=== PATIENT | female | born 1960 | race Caucasian/White ===

== ENCOUNTER → 2017-03-27 | Outpatient (CLI) | payer OTHER | LOC: MC.RAD 07:00 | DX: Z12.31 Encounter for screening mammogram for malignant neoplasm of breast (principal) ==

== ENCOUNTER → 2018-01-15 | Outpatient (CLI) | payer OTHER | LOC: COL.RAD 08:27 | DX: R05 Cough (principal); R06.02 Shortness of breath; F17.200 Nicotine dependence, unspecified, uncomplicated | CPT/HCPCS: Q9967 ==

== ENCOUNTER → 2018-01-28 | Outpatient (CLI) | payer OTHER | LOC: COL.PUL 07:43 | DX: R05 Cough (principal); R06.00 Dyspnea, unspecified; F17.210 Nicotine dependence, cigarettes, uncomplicated ==

== ENCOUNTER → 2018-02-08 | Outpatient (CLI) | payer OTHER | LOC: COL.RAD 11:38 | DX: R93.2 Abnormal findings on diagnostic imaging of liver and biliary tract (principal) ==

== ENCOUNTER 2018-03-08 07:34 | Day surgery (SDC) | payer OTHER ==
[~2018-03-08] VITALS: Ht 162.6 cm; Wt 54.7 kg
[2018-03-08] MEDS ORDERED: XANAX 1MG1 MG PO (07:55)
[2018-03-08] MEDS ORDERED: ZOLOFT 100MG100 MG PO (07:55)
[2018-03-08 07:56] VITALS: BP 129/82; PULSE 54; TEMP 97.8
[2018-03-08] MEDS ORDERED: TRELEGY ELLIPT1 EACH IH (07:56)
[2018-03-08] MEDS ORDERED: PROAIR HFA0.09 MG/AC IH (07:56)
[2018-03-08 09:20] VITALS: BP 119/67; PULSE 63; TEMP 97.8
[2018-03-08 09:35] VITALS: BP 106/67; PULSE 62
[2018-03-08 09:50] VITALS: BP 93/69; PULSE 62
== END 2018-03-08 10:07 | disposition home or self-care (01) ==
LOC: SDCO 07:34
DX: Z86.010 Personal history of colon polyps (principal); D12.3 Benign neoplasm of transverse colon; K57.30 Diverticulosis of large intestine without perforation or abscess without bleeding; K21.9 Gastro-esophageal reflux disease without esophagitis; J44.9 Chronic obstructive pulmonary disease, unspecified; Z87.11 Personal history of peptic ulcer disease
CPT/HCPCS: J2250; J3010; J7030

== ENCOUNTER 2018-08-02 07:08 | Day surgery (SDC) | payer OTHER ==
[~2018-08-02] VITALS: Ht 162.6 cm; Wt 56.7 kg
[2018-08-02] VITALS (9 sets, daily range): BP systolic 94–114; BP diastolic 53–70; PULSE 50–56; TEMP 98.1
[~2018-08-02 07:08] MED LIST: PROAIR HFA0.09 MG/AC IH; TRELEGY ELLIPT1 EACH IH; XANAX 1MG1 MG PO; ZOLOFT 100MG100 MG PO
[2018-08-02 07:46] LABS: HEMOGLOBIN 13.6 g/dl (12.5-16.0); MEAN CELL VOLUME 96 fl (80.0-100.0); MEAN CORPUSCULAR HEMOGLOBIN 32 pg (27.0-31.0); MEAN CORPUSCULAR HGB CONC 33 g/dl (33.0-37.0); MEAN PLATELET VOLUME 10.4 fl (7.4-10.4); PLATELET COUNT 231 K/mm3 (130-400); RED BLOOD COUNT 4.27 M/mm3 (4.10-5.30); REDCELL DISTRIBUTION WIDTH-CV 13.5 % (11.5-14.5)
[2018-08-02 07:55] LABS: CREATININE, serum 0.72 mg/dL (0.52-1.25); POTASSIUM 3.5 mmol/L (3.4-5.0)
[2018-08-02] MEDS ORDERED: ASPI325T6 PO (08:03)
[2018-08-02] MEDS ORDERED: NITROSTAT0.4 MG/TAB SL (08:04)
[2018-08-02] MEDS ORDERED: TOPROL XL 25MG25 MG PO (08:06)
[2018-08-02] MEDS ORDERED: PLAVIX 75MG TAB75 MG PO (08:07)
[2018-08-02] MEDS ORDERED: [UNRECOGNIZED DRUG - OTHER] IH (08:10)
== END 2018-08-02 13:21 | disposition home or self-care (01) ==
LOC: COL.CAR 07:08
PROVIDERS: Internal Medicine Interventional Cardiology
DX: R07.89 Other chest pain (principal); J44.9 Chronic obstructive pulmonary disease, unspecified; M79.604 Pain in right leg; M79.605 Pain in left leg; F17.200 Nicotine dependence, unspecified, uncomplicated; Z79.82 Long term (current) use of aspirin; Z90.710 Acquired absence of both cervix and uterus; Z90.49 Acquired absence of other specified parts of digestive tract; Z88.2 Allergy status to sulfonamides
CPT/HCPCS: J1644; J2250; J3010

== ENCOUNTER → 2018-09-23 | Outpatient (CLI) | payer BC ==
[~2018-09-23] MED LIST changes: +ASPI325T6 PO; +NITROSTAT0.4 MG/TAB SL; +PLAVIX 75MG TAB75 MG PO; +TOPROL XL 25MG25 MG PO; +[UNRECOGNIZED DRUG - OTHER] IH
== END ==
LOC: MC.RAD 07:20
DX: Z12.31 Encounter for screening mammogram for malignant neoplasm of breast (principal)

== ENCOUNTER → 2019-10-17 | Outpatient (CLI) | payer BC | LOC: MC.RAD 08:01 | DX: Z12.31 Encounter for screening mammogram for malignant neoplasm of breast (principal) ==

== ENCOUNTER → 2021-01-04 | Outpatient (CLI) | payer BC | LOC: MC.RAD 15:10 | DX: Z12.31 Encounter for screening mammogram for malignant neoplasm of breast (principal); N64.89 Other specified disorders of breast ==

== ENCOUNTER → 2021-01-10 | Outpatient (CLI) | payer BC | LOC: MC.RAD 06:58 | DX: N63.10 Unspecified lump in the right breast, unspecified quadrant (principal); N64.89 Other specified disorders of breast ==

== ENCOUNTER → 2022-01-06 | Outpatient (CLI) | payer BC | LOC: MC.RAD 07:46 | DX: Z12.31 Encounter for screening mammogram for malignant neoplasm of breast (principal) ==

== ENCOUNTER → 2022-01-24 | Outpatient (CLI) | payer BC | LOC: COL.RAD 07:15 | DX: K44.9 Diaphragmatic hernia without obstruction or gangrene (principal); K21.9 Gastro-esophageal reflux disease without esophagitis ==

== ENCOUNTER → 2022-01-27 | Outpatient (CLI) | payer BC | LOC: COL.RAD 07:30 | DX: K21.00 Gastro-esophageal reflux disease with esophagitis, without bleeding (principal) | CPT/HCPCS: A9541 ==

== ENCOUNTER 2022-02-22 07:36 | Day surgery (SDC) | payer BC ==
[2022-02-22] VITALS (12 sets, daily range): BP systolic 101–126; BP diastolic 50–66; PULSE 59–97; TEMP 97.8–98.4
[~2022-02-22] VITALS: Ht 162.6 cm; Wt 51.0 kg
[2022-02-22] MEDS ORDERED: WELLBUTRIN XL300 M1 PO (08:07)
[2022-02-22] MEDS ORDERED: QVAR REDIHALE10.6 G1 IH (08:08)
[2022-02-22] MEDS ORDERED: SPIRIVA RESPIMAT4 GM IH (08:08)
[2022-02-22] MEDS ORDERED: TRICOR145 MG PO (08:09)
[2022-02-22] MEDS ORDERED: PROTONIX 40MG T40 MG PO (08:09)
[2022-02-22] MEDS ORDERED: PROVENTIL0.09 MG/A1 IH (08:10)
--- NOTE | 2022-02-22 09:15 | NUR ---
Initial visit; Patient thanked [employer] for looking in on her and offering prayer and encouragement prior to her surgical procedure.
--- NOTE | 2022-02-22 22:33 | NUR ---
Patient given PRN [place] for pain to abdomen as requested. SBA to bathroom. Gait slow but steady. Lab sites open to air, no drainge to areas. Continues on clear liquid diet. Denies having nausea and upset stomach. BS hypoactive x 4, denies passing gas. Voices no questions, needs, or concerns at this time. In bed with call light within reach.
[2022-02-23 04:19] VITALS: BP 111/64; PULSE 63; TEMP 98.6
--- NOTE | 2022-02-23 05:15 | NUR ---
Patient as received PRN pain medication as requeste during the night. Voices no further questions, needs, or concerns at this time.
--- NOTE | 2022-02-23 07:00 | NUR ---
PT RESTING IN BED. PT HELPED TO AMBULATE TO THE RESTROOM. PT IS ORIENTED. PT HAS CALL LIGHT AND PHONE WITHIN REACH. NO NEEDS AT THIS TIME.
[2022-02-23 08:01] VITALS: BP 108/71; BP 123/63; PULSE 65; PULSE 89; TEMP 97.9; TEMP 98.5
[2022-02-23] MEDS ORDERED: ZOFRAN 4MG T4 MG/TAB PO (10:44)
[2022-02-23] MEDS ORDERED: NORCO 325 MG-51 TAB PO (10:44)
--- NOTE | 2022-02-23 11:37 | NUR ---
telephone worker met with patient "Erna" to complete intake and discuss discharge plan. Patient reports that she lives at home alone in [place]. She is independent with her ADL's and does not utilize any DME to assist with mobility. Patient has no home oxygen needs. PCP is Dr. Whittaker and she utilizes [facility] in [place] for prescription needs with no cost difficulty. Patient reports to having a DPO[employer] established listing her niece: Jessica Schilling [phone] as her agent but doesn't have it with her and doesn't know if her PCP has a copy. Patient verbalized that she had questions for her RN. RN Wilbert notified. Discharge plan: Home
[2022-02-23 12:00] VITALS: PULSE 87
--- NOTE | 2022-02-23 13:15 | NUR ---
DISCHARGE INSTRUCTIONS DISCUSSED WITH PT. DISCUSSED LIQUID DIET, NEW MEDICATIONS, AND FOLLOW UP INSTRUCTIONS. PT DRESSED AND IV DCD. PT WHEELED OUT FOR DISCHARGE.
== END 2022-02-23 13:16 ==
LOC: SDCO 07:36 → SURG 12:15 → SDCO 02-23 13:16
DX: K21.00 Gastro-esophageal reflux disease with esophagitis, without bleeding (principal)
CPT/HCPCS: OP; J0330; J0690; J1100; J1170; J1885; J2270; J2370; J2405; J2704; J3010; J7120